=== PATIENT | female | born 1970 | race Caucasian/White ===

== ENCOUNTER 2021-11-06 14:07 | Emergency (ER) | payer OTHER ==
[2021-11-06 16:30] LABS: HEMOGLOBIN 13.6 gm/dl (12.3-15.3); RED BLOOD COUNT 4.69 M/UL (4.00-5.10)
[2021-11-06 16:52] LABS: BUN/CREATININE RATIO 30 (0-10)
[2021-11-06] MEDS ORDERED: ZOFRAN 4 MG TAB4 MG PO (18:31)
[2021-11-06] MEDS ORDERED: OMNICEF 300 MG300 MG PO (18:31)
[2021-11-06] MEDS ORDERED: LACTULOSE20 GM/30 M PO (18:31)
[2021-11-06] MEDS ORDERED: ADULT GLYCERIN1 EACH PR (18:31)
== END 2021-11-06 18:40 | disposition home or self-care (01) ==
LOC: ER1 14:07
PROVIDERS: Physician Assistant Medical
DX: K59.00 Constipation, unspecified (principal); N39.0 Urinary tract infection, site not specified; R42 Dizziness and giddiness; R06.02 Shortness of breath; F17.210 Nicotine dependence, cigarettes, uncomplicated; Z90.710 Acquired absence of both cervix and uterus; Z86.73 Personal history of transient ischemic attack (TIA), and cerebral infarction without residual deficits; Z88.5 Allergy status to narcotic agent
CPT/HCPCS: 80053; 81001; 83605; 85025; 87077; 87086; 87186; 99284; Q9967